=== PATIENT | female | born 1990 | race Caucasian/White ===

== ENCOUNTER 2016-06-17 19:37 | Inpatient (IN) | payer OTHER ==
[~2016-06-17] VITALS: Ht 165.1 cm; Wt 145.1 kg
[~2016-06-17 19:37] MED LIST: AMOX-366 PO; CEFD300C3 PO; CULTURELLE CAP1 EAC1 PO
[2016-06-17] MEDS ORDERED: Oxytocin 10 Unit/mL Inj IM PRN (20:10)
[2016-06-17] MEDS ORDERED: Sodium Chloride LOK Flush 10 mL Syringe IVFLUSH PRN ×2 (20:10→20:55)
[2016-06-17] MEDS ORDERED: Methylergonovine 0.2 mg/mL Inj IM PRN (20:10)
[2016-06-17] MEDS ORDERED: Carboprost 250 mCg/mL Inj IM PRN (20:10)
[2016-06-17] MEDS ORDERED: Oxytocin 30 Units/500 mL LR 30 UNITS in IV Premix 1 EACH IV PRN ×2 (20:10→20:55)
[2016-06-17] MEDS ORDERED: Hemorrhage Kit, Post Partum XX ONE ×2 (20:10→20:55)
[2016-06-17] MEDS ORDERED: fentaNYL-PF 50 mCg/mL 2 mL Inj IVPUSH PRN ×2 (20:15→20:55)
[2016-06-17] MEDS ORDERED: EPHEDrine Sulfate 50 mg/mL Inj IV PRN (20:15)
[2016-06-17] MEDS ORDERED: Atropine 1 mg/mL Inj IVPUSH PRN (20:15)
--- NOTE | 2016-06-17 20:18 | PCM.HPANE ---
Patient Data Surgeon Admitting Provider:Nigel Jasmine MD Attending Provider:Nigel Jasmine MD Primary Care Physician:Nigel Jasmine MD Other Provider:Ivelisse Siningham Anesthesia Reason for Visit Active Labor ACTIVE LABOR Ht/WT & BMI Body Mass Index Allergies Coded Allergies: No Known Allergies (Unverified , 07/18/14) Past Anesthesia History Anesthesia History: Denies:: Abnormal Airway, Anesthesia Reactions, Difficult Intubation, Malignant Hyperthermia Diabetes History Hx Diabetes?: No MRSA MRSA: No Medications Hypertension Medication: No Home Meds Incl Beta Bossman: No Active Scripts L. Rhamnosus GG/Inulin (Culturelle Capsule)1 Each Cap.[email or web address] Each PO BID #20 Prov:Ramesh Azevedo MD 07/28/14 Amoxicillin/Clav K 875-125 mg (Augmentin 875-125 mg)1 Each Tablet1 Each PO BID # 20 TABLET Ref 0 Prov:Ramesh Azevedo MD 07/28/14 Cefdinir 300 Mg Unowohu529 Mg PO DAILY #10 CAPSULE Prov:Ramesh Azevedo MD 07/28/14 History History of ENT Problems?: No Hx of Heart Problems?: Yes Hx of Respiratory Problem?: No Respiratory History: Denies:: Use of C-PAP Machine Hx Neurologic Problems?: No Hx of GI Problems?: Yes Hx of Problems?: No HX of Peritoneal Dialysis: No Female Hx: Positive for:: Currently Skin History: Positive for:: History Skin Disorders? (ACNE, INTRACTABLE GENERALIZED ITCHING) Denies:: Pressure Ulcers Hx Musculoskeletal Problems?: Yes Musculoskeletal History: Positive for:: Musculoskeletal Trauma (S/P ORIF LT WRIST) Hx of Psycho/Social Problems?: No Hx Surgeries?: Yes (ORIF LT WRIST,GASTRIC BYPASS) Hx Any Other Health Problems?: Yes Other History: Denies:: Cancer Endocrine Disease Hospitalization Thyroid Disease History Blood Transfusions: Denies:: Blood Transfusions Hx Diabetes: No Hx Alcohol Use: YesHx Substance Use: No Smoking Status: Never Smoker Have You Smoked inLast 12 mo: No Stop/Bang Treated for Sleep Apnea?: No Do You Have a CPAP Machine?: No Risk Assessment Category Category 1A: Patient has history of documented sleep apnea, and HAS NOT received any narcotic, sedative or anesthesia administration during this stay. Category 1B: Patient has history of documented sleep apnea, and HAS received any narcotic , sedative or anesthesia administration during this stay Category 2: Patient has SUSPECTED Obstructive Sleep Apnea, and HAS received any narcotic , sedative or anesthesia administration during this stay. Category 3: Patient has SUSPECTED Obstructive Sleep Apnea and HAS NOT received narcotic, sedative or anesthesia administration during this stay. Category 4: Outpatient in Procedural Areas with known sleep apnea or who screen positive for High Risk via the STOP/BANG questionnaire. Exam Exam General Appearance: Alert, Oriented X3, Cooperative, No Acute Distress HEENT/AIRWAY: MP 2 Lungs: Clear to Auscultation, Normal Air Movement Heart: Exam Unremarkable, Regular Rate/Rhythm, No Murmurs/Rubs/Gallops Plan Impression Patient chart reviewed, patient interviewed and anesthestic plan with risks, benefits, and alternatives discussed, and informed consent obtained. NPO Status: 930pm ASA Physical Status: ASA3 Severe Disease (BMI 53.3; pt seen in consultation ) Anesthetic Plan: Epidural Bene/Risks/Altern/Consents: Yes HP Complete Prior to Induction: Yes Tariq Houston MD Jun 17, 2016 20:18
[2016-06-17] MEDS: Lactated Ringer's 1,000 ML IV PRN ×2 (20:36→21:48)
[2016-06-17 20:41] LABS: Mean Corpuscular Hemoglobin 31.1 pg (27.0-35.0); Mean Corpuscular Volume 93.7 fL (81-100)
[2016-06-17] MEDS ORDERED: Lactated Ringer's 1,000 ML IV PRN (20:54)
[2016-06-17] MEDS ORDERED: fentaNYL 2 mCg/mL-Bupivicaine 0.125% 100 mL Premix EPIDURAL ONE (21:01)
[2016-06-18] MEDS: Sodium Chloride LOK Flush 10 mL Syringe IVFLUSH SCH ×3 (00:30→16:30)
[2016-06-18] MEDS ORDERED: Oxytocin 10 Unit/mL Inj IM PRN (01:25)
[2016-06-18] MEDS ORDERED: Methylergonovine 0.2 mg/mL Inj IM PRN (01:25)
[2016-06-18] MEDS ORDERED: Carboprost 250 mCg/mL Inj IM PRN (01:25)
[2016-06-18] MEDS ORDERED: Witch Hazel-Glycerin Pads TOPICAL PRN (01:25)
[2016-06-18] MEDS ORDERED: Hemorrhage Kit, Post Partum XX ONE (01:25)
[2016-06-18] MEDS: Lactated Ringer's 1,000 ML IV SCH ×3 (01:25→17:25)
--- NOTE | 2016-06-18 02:25 | HP ---
[address] [address] HISTORY AND PHYSICAL PATIENT: ANJEL CANTU : 1990 MR#: [id number] ADMIT: 06/17/2016 JOB ID: [id number] CHIEF COMPLAINT: Painful contractions. HISTORY OF PRESENT ILLNESS: This is a 26-year-old obstetrical patient of mine who is a 2, para 1, at 40 and 1/7 weeks estimated gestational age, who presents complaining of increasing contractions starting early this morning. She came in to be checked at the Center around noon and was found to be about 2 cm, about 70% effaced, and krish occasionally but not very frequently. heart tracing was reactive and so she was sent home. She has come back this evening krish very vigorously and painfully, and is about 5 cm and 90% effaced, and so was admitted for expectant management, krish about every 2-3 minutes. She has not noted any significant vaginal discharge. PAST OBSTETRICAL HISTORY: The patient had one vaginal in November 2014 of a baby boy who was 7 pounds 3 ounces, having delivered him at 39 and 5/7 weeks estimated gestational age without any significant problems. Her course has been fairly unremarkable. Her blood type is O-positive. Rubella immune, nonreactive serology. She has negative hepatitis B, hep C, HIV and antibody screen. Hematocrit is 41.9 at nine weeks and 36.7 at 28 weeks. 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 Pap smear showed positive HPV with ASCUS and patient declined colposcopy. MSAFP test was done at about 18 weeks and was negative, and 28 week labs were unremarkable. Diabetic screen was negative. The initial labs, her chlamydia and gonorrhea tests were negative and hemoglobin A1c was 5.2. Her GBS status is negative. Her course has been fairly unremarkable. She has gained only about 20 pounds over the course of her . She did get flu vaccination in December and had a Tdap in 2014. COMPLICATIONS: The patient's obstetrical complication is primary that she is morbidly obese with a BMI of about 50 and she has a history of gastric bypass in November 2011. Anesthesia has been consulted prior to being term because of her elevated BMI. She has been down to the [facility] program because of her gastric bypass and potential troubles with malnutrition, but has not had any significant problems. She has had multiple ultrasounds throughout her that have been unremarkable showing normal growth. PAST GYNECOLOGICAL HISTORY: Is entirely negative except for history of low-grade MARILEE noted in 2013 with subsequent colpo which was negative. PAST MEDICAL HISTORY: Significant for the morbid obesity and gastric bypass, otherwise is entirely unremarkable. SURGICAL HISTORY: Significant for the gastric bypass in November 2011, as well as cholecystectomy in April 2013, and some sort of left wrist fracture repair in the past. FAMILY HISTORY: Significant for hypertension in maternal grandmother, otherwise is negative, and specifically is negative for diabetes. SOCIAL HISTORY: Patient lives in [place] with her grandparents and her 1-1/2-year-old son. She has never smoked. Does not drink any alcohol or take any illegal drugs. She is a part-time worker at a [employer]. ALLERGIES: The patient has no known drug allergies. MEDICATIONS: Currently taking vitamins, otherwise is on no regular medications. REVIEW OF SYSTEMS: Denies any recent illness. Has had a little bit of a headache but not a global headache. Denies any blurry vision. Has had some swelling in her feet and her hands in the last week or two. She has had increasing intensity of contractions through the day today. Denies any significant vaginal discharge. No abdominal pain besides contractions. No chest pain, palpitations, or shortness of breath. OBJECTIVE: Well-developed, obese woman in no apparent distress except for with contractions. Her vital signs are normal. Lungs are clear to auscultation bilaterally with good air movement. Heart is regular rate and rhythm. No significant murmur is heard. Abdomen is gravid, otherwise benign. Extremities show no significant pitting edema and normal deep tendon reflexes. The patient had an epidural placed before I arrived and examined the patient, and after the epidural I checked her cervix and she is about 6 cm, nearly 100% effaced, -3 station, vertex position. Krish about every 2-3 minutes with heart tracing that is in the normal range and appears to be reactive. The head is well engaged. She has bulging bag of burciaga and this was artificially ruptured at 9:05 this evening, producing clear fluid. scalp electrode was placed, as well as an IUPC since they have had difficulty monitoring the baby and contractions because of her body habitus. IMPRESSION: The patient has been admitted and an epidural placed, and will provide routine expectant management. I discussed routine expectant management issues and procedures. Also, discussed potential complications and the usual obstetrical procedures to address them, but also the possible need for surgical care if a section becomes needed. I also discussed the possible need for assistance with vacuum extraction and the associated potential complications. All of her questions were answered, she expressed understanding of these issues, and is willing to proceed.
--- NOTE | 2016-06-18 02:29 | OP ---
[address] [address] OPERATIVE REPORT PATIENT: ANJEL CANTU : 1990 MR#: [id number] ADMIT: 06/17/2016 JOB ID: [id number] DATE OF SURGERY: SURGEON: PREOPERATIVE DIAGNOSIS(ES): POSTOPERATIVE DIAGNOSIS(ES): DELIVERY NOTE: The patient had a spontaneous vaginal delivery of a baby girl as outlined below. Please see my admission H and P for full details of her presenting circumstances. Her labor progressed nicely and fairly quickly. She obtained epidural for anesthesia, this helped quite a bit and had very little pain after that. Her labor progressed night with good anesthesia and with heart trace remaining nice and reactive throughout. She continued to contract every 2-4 minutes. She was found to be complete at 23:54 and I was called to attend the delivery. The nursing staff gathered and prepared the patient. Then, she began pushing, and after just 7 or 8 minutes of pushing she delivered the baby's head. There was no nuchal cord noted. The baby presented in occiput anterior position. The rest of the baby's delivery was completed at 00:24 over an intact perineum. The baby was then placed on mom's tummy, approximately 60 seconds were waited, and then the cord was clamped and cut. The placenta delivered spontaneously and intact at 00:29. Examination of her perineum revealed no significant lacerations. Estimated blood loss 200 cc. Umbilical cord was examined and showed a three-vessel cord. There were no complications. This was a baby girl with Apgars of 8 and 9, and weight is still pending. Mom is doing very well and will be placed on routine care.
[2016-06-18] MEDS: Ascorbic Acid 500 mg Tablet PO SCH ×2 (08:44→19:52)
[2016-06-18] MEDS: oxyCODONE-Acetamin 5-325 mg Tablet PO PRN ×3 (11:41→19:52)
[2016-06-18] MEDS ORDERED: LANOlin HPA 7 Gm Ointment TOPICAL PRN (13:35)
[2016-06-19] MEDS: oxyCODONE-Acetamin 5-325 mg Tablet PO PRN ×3 (01:10→12:32)
[2016-06-19 06:40] LABS: Mean Corpuscular Hemoglobin 31.2 pg (27.0-35.0); Mean Corpuscular Volume 94.4 fL (81-100)
--- NOTE | 2016-06-19 08:09 | PCM.DIOB ---
Obstetrical Disch Instruction Date of Service: Jun 19, 2016 Dates of Hospitalization Date of Hospital Admission Jun 17, 2016 at 19:45 Providers Admitting Physician: Nigel Jasmine MD Primary Care Physician: Nigel Jasmine MD Attending Physician: Nigel Jasmine MD Discharge Diagnosis Problems: (1) Normal vaginal delivery Onset Date: 11/13/2014 Status: Acute ICD Code: O80 Diet Discharge Diet: No restrictions Activity Discharge Activity-General: Pelvic Rest for 6 weeks, Try not to overdue, Be up and about, Balance rest and activity Dressing and Incisional Care Hygiene: May shower Follow Up Plan Follow Up Plan f/u with me in 6 weeks and as needed Follow-up Provider (F9): Nigel Jasmine MD Follow-up appointment: Weeks (six) Call your provider for: Fever or Chills, Shortness of breath, Heavy vaginal bleeding, Heavy bleeding, Epigastric pain, Excessive constipation, Vaginal discomfort, Red painful breasts Nigel Jasmine MD Jun 19, 2016 08:09
[2016-06-19] MEDS ORDERED: OXYC1TAB24 PO (08:11)
[2016-06-19] MEDS: Ascorbic Acid 500 mg Tablet PO SCH (08:31)
[2016-06-19 10:02] VITALS: BP 121/72; PULSE 72; RESP 18
--- NOTE | 2016-06-20 06:06 | DIS ---
[address] [address] DISCHARGE SUMMARY PATIENT: ANJEL CANTU : 1990 MR#: [id number] ADMIT: 06/17/2016 JOB ID: [id number] DIS: 06/19/2016 DATE OF ADMISSION: 06/17/2013 DATE OF DISCHARGE: 06/19/2016 DISCHARGE DIAGNOSIS: 1. Term , status post spontaneous vaginal delivery. 2. Morbid obesity. BRIEF HISTORY AND PHYSICAL: Please see my admission H and P for details. PROCEDURES: The patient had a spontaneous vaginal delivery early on the morning of June 18. CONSULTATIONS: None. HOSPITAL COURSE: The patient was admitted in active labor on the evening of June 17. Please see my admission H and P for details. Her labor course proceeded nicely. She requested an epidural was and that was placed with excellent results. She eventually had a spontaneous vaginal delivery of a baby girl without problems shortly after midnight. Please see my delivery note for full details. Her course was entirely unremarkable. On the morning of June 19 she had no acute complaints just some residual uterine discomfort, reported decreasing lochia and no significant breast or perineal discomfort. PHYSICAL EXAMINATION: Found her vital signs to be normal. Lungs were clear to auscultation bilaterally with good air movement. Heart is regular rate and rhythm. No significant murmur was heard. Abdomen was obese, otherwise benign. Uterus was firm below the umbilicus. Extremities showed no pitting edema and normal deep tendon reflexes. ASSESSMENT: Status post spontaneous vaginal delivery without problems. PLAN: Discharge today with instructions to follow up with me in six weeks otherwise as needed. We will recommend she take ibuprofen [id number] as needed for discomfort and also given 20 tablets of Percocet 5/325 to use p.r.n. for breakthrough pain. Given routine discharge instructions.
== END 2016-06-19 14:15 | disposition home or self-care (01) | DRG 775 ==
LOC: FBCO 19:37 → FBC 19:45
PROVIDERS: ADMIT Family Medicine; ATTEND Family Medicine
PROC: 10E0XZZ Delivery of Products of Conception, External Approach (ICD-10-PCS; principal; 2016-06-18)
PROC: 10907ZC Drainage of Amniotic Fluid, Therapeutic from Products of Conception, Via Natural or Artificial Opening (ICD-10-PCS; 2016-06-18)
PROC: 10H07YZ Insertion of Other Device into Products of Conception, Via Natural or Artificial Opening (ICD-10-PCS; 2016-06-18)
DX: O99.844 Bariatric surgery status complicating childbirth (principal); Z68.43 Body mass index [BMI] 50.0-59.9, adult; E66.01 Morbid (severe) obesity due to excess calories; Z3A.40 40 weeks gestation of pregnancy; Z37.0 Single live birth